=== PATIENT | female | born 1950 | race Caucasian/White ===

== ENCOUNTER → 2018-01-04 | Outpatient (CLI) | payer MEDICARE, OTHER ==
--- NOTE | 2018-01-04 10:56 | RADIOLOGY REPORT (SQ) ---
EXAM DESCRIPTION: /S [employer] LTD COMPLETED DATE/TIME: 01/04/2018 9:23 am REASON FOR STUDY: AAA (I71.4) I71.4 ABDOMINAL AORTIC ANEURYSM, WITHOUT RUPTURE COMPARISON: None. TECHNIQUE: Static and dynamic grayscale images acquired of the aorta and stored on PACs. Selected co kai Doppler and spectral images recorded. LIMITATIONS: Limited examination due to body habitus. FINDINGS: AORTIC CALIBER MAXIMAL PROXIMAL: 1.7 cm. The abdominal aorta is tortuous. The patient has a known infrarenal distal abdominal aortic aneurysm demonstrated on the CT examination dated 08/30/2015. A 4.5 x 4.0 x 3.9 cm aneurysm is identified, whi ch is likely infrarenal in location. Due to the patient's body habitus, the examination is somewhat limited. DISTAL: 1.4 cm. ILIAC DIAMETER RIGHT;LEFT: Not visualized due to overlying bowel gas. OTHER: No other significant finding. IMPRESSION: 1. The examination is limited due to the patient's body habitus. The iliac arteries ar e not visualized due to overlying bowel gas. 2. An abdominal aortic aneurysm is identified which is probably infrarenal in location and measures 4.5 x 4.0 x 3.9 cm. Due to the limited scope of this examination, further evaluation with CT abdomen and pelvis study with IV contrast may be helpful for better delineation of location of the aneurysm. COMMENT: Aorta screening examinations categories: Negative - less than 3 cm. TECHNICAL DOCUMENTATION: JOB ID: [id number] [employer]- All Rights Reserved Reading location - IP/workstation name: [email or web address]
== END ==
LOC: RAD 08:20
PROVIDERS: ATTEND Surgery
DX: I71.4 Abdominal aortic aneurysm, without rupture (principal)
CPT/HCPCS: 76775